=== PATIENT | female | born 1955 | race Caucasian/White ===

== ENCOUNTER 2019-12-30 20:00 | Outpatient (CLI) | payer BC, SELFPAY | END 2019-12-30 20:01 | disposition home or self-care (01) | LOC: SLEEP 12-31 09:46 | PROVIDERS: Family Provider Family Medicine; Visit Provider Family Medicine | DX: G47.10 Hypersomnia, unspecified (principal) | CPT/HCPCS: 95810 ==

== ENCOUNTER 2020-03-05 20:00 | Outpatient (CLI) | payer BC, SELFPAY | END 2020-03-05 20:01 | disposition home or self-care (01) | LOC: SLEEP 03-09 08:29 | PROVIDERS: Family Provider Family Medicine; Visit Provider Family Medicine | DX: G47.33 Obstructive sleep apnea (adult) (pediatric) (principal) | CPT/HCPCS: 95811 ==

== ENCOUNTER 2021-11-11 10:22 | Outpatient (CLI) | payer BC, SELFPAY ==
--- NOTE | 2021-11-11 10:28 | MM_ITS ---
WS: [id number] SCREENING DIGITAL BREAST TOMOSYNTHESIS MAMMOGRAM WITH CAD HISTORY: SCREENING COMPARISON: 06/09/2019, 10/11/2018 and 05/04/2016 Bilateral CC and MLO with tomosynthesis views submitted. Synthetic mammography reviewed. Computer aid ed detection analyzed. Breast composition: There are scattered areas of fibroglandular density. No suspicious masses, microc alcifications or architectural distortion. MM/[place] [id number] IMPRESSION: BI-RADS: 1-Negative FOLLOW UP: 1 Year Follow-up
== END 2021-11-11 10:23 | disposition home or self-care (01) ==
LOC: RAD 10:24
PROVIDERS: PCP Family Medicine; Visit Provider Family Medicine
DX: Z12.31 Encounter for screening mammogram for malignant neoplasm of breast (principal)
CPT/HCPCS: 77063; 77067

== ENCOUNTER 2022-11-14 10:22 | Outpatient (CLI) | payer MEDICARE, SELFPAY ==
--- NOTE | 2022-11-14 10:40 | MM_ITS ---
WS: [email or web address] SCREENING DIGITAL TOMOSYNTHESIS MAMMOGRAM WITH CAD HISTORY: SCREENING COMPARISON: 11/11/2021 and 06/09/2019 Bilateral CC and MLO with tomosynthesis views submitted. Synthetic mammography reviewed. Computer aid ed detection analyzed. Breast composition: There are scattered areas of fibroglandular density. No suspicious masses, microc alcifications or architectural distortion. MM/[place] [id number] IMPRESSION: BI-RADS: 1-Negative FOLLOW UP: 1 Year Follow-up
== END 2022-11-14 10:23 | disposition home or self-care (01) ==
PROVIDERS: PCP Family Medicine; Visit Provider Family Medicine
DX: Z12.31 Encounter for screening mammogram for malignant neoplasm of breast (principal)
CPT/HCPCS: 77063; 77067

== ENCOUNTER 2023-11-13 13:47 | Outpatient (CLI) | payer MEDICARE, SELFPAY ==
--- NOTE | 2023-11-13 13:49 | XRR_ITS ---
PROCEDURE INFORMATION: Exam: XR Right Knee Exam date and time: 11/13/2023 1:57 PM Age: 68 years old Clinical indication: Pain; Knee; Right; Additional info: Right knee pain TECHNIQUE: Imaging protocol: Radiologic exam of the right knee. Views: 3 views. COMPARISON: No relevant prior studies available. FINDINGS: Bones/joints: Minimal medial tibiofemoral articular osteophyte. No joint space narrowing. No joint effusion. Soft tissues: Normal. No joint effusion evident. XR/XR knee RT 3V* [id number] IMPRESSION: No significant pathology.
== END 2023-11-13 13:48 | disposition home or self-care (01) ==
LOC: RAD 13:49
PROVIDERS: PCP Family Medicine; Visit Provider Family Medicine
DX: M25.561 Pain in right knee (principal)
CPT/HCPCS: 73562

== ENCOUNTER 2023-11-30 09:42 | Outpatient (CLI) | payer MEDICARE, SELFPAY ==
--- NOTE | 2023-11-30 10:01 | MM_ITS ---
WS: [id number] BILATERAL SCREENING DIGITAL TOMOSYNTHESIS MAMMOGRAM WITH CAD HISTORY: SCREENING COMPARISON: 11/14/2022, 11/11/2021 Bilateral CC and MLO views with tomosynthesis and synthetic mammography submitted. Computer aided det ection analyzed. Breast composition: There are scattered areas of fibroglandular density. No suspicious masses, microc alcifications or architectural distortion. MM/[place] [id number] IMPRESSION: BI-RADS: 1-Negative FOLLOW UP: 1 Year Follow-up
== END 2023-11-30 09:43 | disposition home or self-care (01) ==
PROVIDERS: PCP Family Medicine; Visit Provider Family Medicine
DX: R92.323 Mammographic fibroglandular density, bilateral breasts (principal); R92.8 Other abnormal and inconclusive findings on diagnostic imaging of breast
CPT/HCPCS: 77063; 77067

== ENCOUNTER 2024-01-17 09:43 | Outpatient (CLI) | payer MEDICARE, SELFPAY ==
--- NOTE | 2024-01-17 10:00 | USCV_ITS ---
Darleen Meier Age: 68 Gender: F : 1955 Exam Date: 01/17/2024 09:57 Ordering Phys: Panfilo Orellana MD Technologist: [employer] Exam Location: [facility] [place] Indication: PATIENT COMPLAINT OF LUMP LEFT LOWER EXTREMITY HISTORY: FAMILY OF HISTORY OF DVT-COMPLAINT OF ANKLE LUMP LEFT LOWER EXTREMITY PROCEDURES: Venous duplex imaging was performed in only the left lower extremity. The following venous structures were evaluated: common femoral vein, profunda vein, proximal portion of the greater saphenous vein, superficial femoral vein, and the popliteal vein. In addition, the posterior tibial and peroneal trunk were evaluated. Serial compression, augmentation maneuvers, and spectral Doppler flow evaluation were performed. FINDINGS: Normal 2-D Doppler and augmentation and compressibility throughout the lower extremity venous structures. Additional imaging through the proximal calf veins also reveals no thrombus. Limited evaluation of the greater saphenous vein is patent with no thrombus. CONCLUSIONS No evidence of left lower extremity DVT. Thomas Bergman MD (Electronically Signed) Final Date: 17 January 2024 11:29 S
--- NOTE | 2024-01-17 10:00 | US_ITS ---
WS: [id number] ULTRASOUND SOFT TISSUES LEFT lower leg HISTORY: Possible lipoma of left calf - evaluate for DVT/mass COMPARISON: None available. TECHNIQUE: 2-D and color Doppler imaging is submitted. Ultrasound directed to the LEFT lower extremity, 6 to 8 inches above the ankle. No mass identified. T here is an area of firmness but no corresponding abnormality was identified by ultrasound. No increas ed vascularity. US/US soft tissue/extremity [id number] IMPRESSION: No ultrasound abnormality noted in the LEFT lower extremity at the area of palp able mass.
== END 2024-01-17 09:44 | disposition home or self-care (01) ==
LOC: RAD 09:44
PROVIDERS: PCP Family Medicine; Visit Provider Family Medicine
DX: M79.662 Pain in left lower leg (principal)
CPT/HCPCS: 76882; 93971

== ENCOUNTER → 2024-05-01 08:04 | Outpatient (BNVA) | payer MEDICARE, SELFPAY | PROVIDERS: PCP Family Medicine; Visit Provider Family Medicine | DX: Z51.81 Encounter for therapeutic drug level monitoring (principal); Z13.1 Encounter for screening for diabetes mellitus; E53.8 Deficiency of other specified B group vitamins; E55.9 Vitamin D deficiency, unspecified; R53.81 Other malaise; R53.83 Other fatigue | CPT/HCPCS: 80053; 80061; 82306; 82607; 83036; 84443; 85025 ==

== ENCOUNTER → 2024-07-09 13:48 | Outpatient (BNVA) | payer MEDICARE, SELFPAY | PROVIDERS: PCP Family Medicine; Visit Provider Family Medicine | DX: R10.9 Unspecified abdominal pain; R30.0 Dysuria; R31.9 Hematuria, unspecified | CPT/HCPCS: 81000; 87086 ==

== ENCOUNTER 2024-07-15 14:48 | Outpatient (CLI) | payer MEDICARE, SELFPAY ==
[2024-07-15] MEDS: iohexol 350 mg/mL 500 mL Btl (per mL) PO (15:42)
[2024-07-15 16:02] LABS: Blood Urea Nitrogen 14 mg/dL (8-23); Glomerular Filtration Rate 83.5 mL/min (90-130)
[2024-07-15] MEDS: iohexol 350 mg/mL 500 mL Btl (per mL) IV (16:08)
--- NOTE | 2024-07-15 16:15 | CT_ITS ---
WS: [id number] CT ABDOMEN AND PELVIS WITH CONTRAST HISTORY: Abdominal pain TECHNIQUE: Imaging performed of the abdomen and pelvis with IV contrast. Single phase imaging of the abdomen. Coronal and sagittal reformats are submitted. All CT scans at [facility] use at [address] one of these dose optimization techniques: automated exposure control; mA and/or kV adjustment per patient size (includes targeted exams where dose is matched to clinical indication); or iterative re construction. IV CONTRAST: Omnipaque 350; 100 mL IV. Oral contrast: Yes. DLP: 849.03 mGy.cm COMPARISON: None available. Lower thorax: Lung bases are clear. Heart is normal size. Small hiatal hernia. Liver/biliary system: Normal size with no intrahepatic dilatation. Gallbladder: Status post cholecystectomy. Pancreas: Normal size pancreas and pancreatic duct. No adjacent inflammation. Spleen: Normal size spleen. No mass or infarct. Adrenal glands: Normal. Right kidney: Normal. Left kidney: Normal. Aorta: Normal aorta. Variant configuration of the celiac trunk and SMA. SMA trunk is large and gives rise to the common hepatic artery. Small caliber splenic artery. Its origin is not determined. No thr ombus. SMV is normal. Lymphadenopathy: None. Free fluid: None. GI tract: No GI tract obstruction. Normal stomach and small bowel. Normal appendix. Scattered diverti cula. No acute diverticulitis. Abdominal wall: Unremarkable abdominal wall. No hernia. Pelvis: Prior hysterectomy. No free fluid or adenopathy. Normal urinary bladder. Bones: Unremarkable. CT/CT abdomen pelvis w con* [id number] IMPRESSION: 1. No acute abdominal or pelvic abnormalities are identified. 2. Mild burden diverticular disease without acute diverticulitis. 3. No GI tract obstruction. Normal appendix. 4. Prior cholecystectomy and hysterectomy. 5. No ascites or adenopathy.
== END 2024-07-15 14:49 | disposition home or self-care (01) ==
LOC: RAD 14:51
PROVIDERS: PCP Family Medicine; Visit Provider Family Medicine
DX: R14.0 Abdominal distension (gaseous) (principal); K57.90 Diverticulosis of intestine, part unspecified, without perforation or abscess without bleeding; Z90.49 Acquired absence of other specified parts of digestive tract; Z90.710 Acquired absence of both cervix and uterus; K44.9 Diaphragmatic hernia without obstruction or gangrene; R93.89 Abnormal findings on diagnostic imaging of other specified body structures
CPT/HCPCS: 74177; 82565; 84520

== ENCOUNTER 2024-09-11 15:28 | Outpatient (CLI) | payer MEDICARE, SELFPAY ==
--- NOTE | 2024-09-11 16:00 | MR_ITS ---
WS: [email or web address] MRI HEAD WITH CONTRAST TECHNIQUE: Sagittal T1, T2 axial, T2 axial FLAIR, axial susceptibility weighted imaging, axial diffusion weighted images, and coronal T2 images were obtained. Pre and post-T1 axial and post T1 coronal images. ADC and FSPGR images. CLINICAL INFORMATION: Dizziness, headaches, vision changes, skull deformity COMPARISON: None. FINDINGS: No evidence of restricted diffusion to suggest acute ischemia. Ventricular system and basal cisterns are patent. Minimal small vessel changes. Mild parenchymal volume loss. Normal posterior fossa. Normal vascular flow voids at the skull base. No extra-axial fluid collections. No evidence of mass or mass effect. Paranasal sinuses and mastoid air cells are well aerated. No hemosiderin on the susceptibly weighted images. Normal optic chiasm and pituitary infundibulum. Temporal lobes and hippocampal formations are normal in appearance. No abnormal gadolinium enhancement. Incidental tiny venous angioma RIGHT frontal lobe. Normal dural venous sinuses. No other suspicious findings. MR/MR head wo/w con [id number] IMPRESSION: 1. No evidence of restricted diffusion to suggest acute ischemia. 2. Minimal small vessel changes with mild parenchymal volume loss. 3. Incidental venous angioma RIGHT frontal lobe. 4. No hemosiderin on susceptibility-weighted images. 5. No other suspicious findings.
[2024-09-11] MEDS: gadobenate dimeglumine 20 mL vial IV (16:17)
== END 2024-09-11 15:29 | disposition home or self-care (01) ==
LOC: RAD 15:29
PROVIDERS: PCP Family Medicine; Visit Provider Family Medicine
DX: R51.9 Headache, unspecified (principal); H53.9 Unspecified visual disturbance; R42 Dizziness and giddiness; M95.2 Other acquired deformity of head; R90.89 Other abnormal findings on diagnostic imaging of central nervous system
CPT/HCPCS: 70553

== ENCOUNTER 2024-12-10 13:23 | Outpatient (CLI) | payer MEDICARE, SELFPAY ==
--- NOTE | 2024-12-10 13:30 | MM_ITS ---
WS: [email or web address] BILATERAL 3D TOMOSYNTHESIS DIGITAL SCREENING MAMMOGRAPHY WITH CAD CLINICAL INFORMATION: SCREENING HISTORY: Screening mammogram. No current complaints. COMPARISON: 2023 TECHNIQUE: Bilateral CC and MLO views. FINDINGS: Scattered fibroglandular densities bilaterally. No suspicious focal mass, asymmetry, calcifications, or architectural distortion. No evidence of malignancy. MM/MM scr BI tomosynthesis [id number] IMPRESSION: DENSITY: There are scattered areas of fibroglandular density. BI-RADS: 1 - Negative. FOLLOW UP: 1 Year Follow-up Recommend return to annual screening mammography.
== END 2024-12-10 13:24 | disposition home or self-care (01) ==
LOC: RAD 13:26
PROVIDERS: PCP Family Medicine; Visit Provider Family Medicine
DX: Z12.31 Encounter for screening mammogram for malignant neoplasm of breast (principal); R92.323 Mammographic fibroglandular density, bilateral breasts
CPT/HCPCS: 77063; 77067